=== PATIENT | male | born 1990 ===

== ENCOUNTER 2020-03-29 12:27 | Emergency (ER) | payer SELFPAY ==
[~2020-03-29] VITALS: Ht 154.9 cm; Wt 86.6 kg
[2020-03-29 12:34] VITALS: Ht 154.9 cm; Wt 86.6 kg
[2020-03-29 13:18] LABS: BASOPHIL % 0.5 % (0-2); PLATELET COUNT 202 x10^3mcL (130-400); RED CELL DISTRIBUTION WIDTH 14.1 % (11.5-14.5)
[2020-03-29 13:40] LABS: CALCIUM 9.2 mg/dL (8.5-10.1); CARBON DIOXIDE 29.2 mmol/L (21-32); CHLORIDE SERUM 101 mmol/L (98-107); CREATININE SERUM 1.3 mg/dL (0.7-1.3); GFR1 > 60 mL/min; GLUCOSE SERUM 94 mg/dL (74-106); POTASSIUM SERUM 3.9 mmol/L (3.5-5.1); SODIUM SERUM 137 mmol/L (136-145)
[2020-03-29 13:44] LABS: ALBUMIN 4.3 g/dL (3.4-5.0); ALKALINE PHOSPHATASE 66 U/L (46-116); ALT/SGPT 22 U/L (16-63); AST/SGOT 13 U/L (15-37); TOTAL PROTEIN, SERUM 7.9 g/dL (6.4-8.2)
[2020-03-29 14:30] VITALS: BP 124/74
== END 2020-03-29 14:30 | disposition home or self-care (01) ==
LOC: ED 12:27
PROVIDERS: Student in an Organized Health Care Education/Training Program
DX: R42 Dizziness and giddiness (principal); R79.89 Other specified abnormal findings of blood chemistry